=== PATIENT | female | born 1975 | race Two or more races ===

== ENCOUNTER 2017-09-08 11:36 | Outpatient (CLI) | payer OTHER ==
[~2017-09-08 11:36] MED LIST: CIPRO500 MG PO
== END 2017-09-08 11:45 | disposition home or self-care (01) ==
LOC: LAB 11:36
DX: N30.00 Acute cystitis without hematuria (principal)

== ENCOUNTER 2017-11-09 11:24 | Outpatient (CLI) | payer OTHER | END 2017-11-09 11:25 | disposition home or self-care (01) | LOC: LAB 11:24 | DX: R19.5 Other fecal abnormalities (principal); N39.0 Urinary tract infection, site not specified ==

== ENCOUNTER 2017-12-09 21:00 | Emergency (ER) | payer OTHER ==
[~2017-12-09] VITALS: Ht 165.1 cm; Wt 69.4 kg
[2017-12-10] MEDS ORDERED: CLARITIN-D 121 EACH PO (02:01)
[2017-12-10] MEDS ORDERED: FLONASE16 GM NASAL (02:01)
[2017-12-10] MEDS ORDERED: ORASEP SPRAY30 ML MM (02:01)
== END 2017-12-10 01:15 | disposition home or self-care (01) ==
LOC: ER 21:00
DX: B34.9 Viral infection, unspecified (principal)

== ENCOUNTER 2018-11-29 07:32 | Outpatient (CLI) | payer OTHER ==
[~2018-11-29 07:32] MED LIST changes: +CLARITIN-D 121 EACH PO; +FLONASE16 GM NASAL; +ORASEP SPRAY30 ML MM
== END 2018-11-29 09:52 | disposition home or self-care (01) ==
LOC: LAB 07:32
DX: D64.89 Other specified anemias (principal); E03.8 Other specified hypothyroidism; Z12.11 Encounter for screening for malignant neoplasm of colon; N95.1 Menopausal and female climacteric states; I10 Essential (primary) hypertension; E83.51 Hypocalcemia; A64 Unspecified sexually transmitted disease; N39.0 Urinary tract infection, site not specified; R97.8 Other abnormal tumor markers; R79.89 Other specified abnormal findings of blood chemistry

== ENCOUNTER 2019-07-11 11:02 | Outpatient (CLI) | payer OTHER | END 2019-07-11 11:09 | disposition home or self-care (01) | LOC: LAB 11:02 | DX: M95.0 Acquired deformity of nose (principal) ==

== ENCOUNTER → 2019-07-13 | Outpatient (CLI) | payer OTHER | END | disposition home or self-care (01) | LOC: TOM 07:45 | DX: M95.0 Acquired deformity of nose (principal) ==

== ENCOUNTER → 2025-01-24 | Outpatient (CLI) | payer OTHER | END | disposition home or self-care (01) | LOC: NUCLEAR 07:09 | PROVIDERS: ATTEND Internal Medicine | DX: C50.411 Malignant neoplasm of upper-outer quadrant of right female breast (principal) ==